=== PATIENT | male | born 1985 | race Caucasian/White ===

== ENCOUNTER 2018-10-02 18:23 | Emergency (ER) | payer SELFPAY ==
[2018-10-02 19:18] LABS: #Basophils 0.1 thou/uL (0.0-0.2); #Eosinphils 0.5 thou/uL (0.0-0.7); #Lymphocytes 2.8 thou/uL (1.20-3.40); #Monocytes 0.9 thou/uL (0.11-0.59); #Neutrophils 5.4 thou/uL (1.40-6.50); %Basophils 0.7 % (0.0-1.0); %Eosinophils 5.4 % (0.0-10.0); %Lymphocytes 28.6 % (21.0-51.0); %Monocytes 9.3 % (0.0-10.0); Hemoglobin 14.1 g/dL (14.0-18.0); Mean Corpuscular HGB CONC 33.9 g/dL (32.0-36.0); Mean Corpuscular Hemoglobin 31.2 pg (27.0-31.0); Mean Corpuscular Volume 91.9 fL (78.0-98.0); Platelet Count 246 thou/uL (130-400); RBC Distribution Width 11.1 % (11.5-14.5); Red Blood Cell (RBC) Count 4.52 mill/uL (4.70-6.10); White Blood Cell (WBC) Count 9.7 thou/uL (4.8-10.8)
[2018-10-02 19:19] LABS: Bilirubin Negative (Negative); Blood, Urine Negative (Negative); Clarity CLEAR (Clear); Glucose, Urine (Dipstick) Negative (Negative); Leukocyte Negative (Negative); Nitrite Negative (Negative); Protein, Urine (Dipstick) Negative (Neg-Trace); Specific Gravity, Urine 1.028 (1.002-1.036); pH, Urine 5.5 (5.0-9.0)
[2018-10-02 19:32] LABS: Amphetamine Detected (NotDetected); Barbiturates Screen Not Detected (NotDetected); Benzodiazepine Screen Not Detected (NotDetected); Cocaine Metabolite Screen Not Detected (NotDetected); Medtox Control Line Valid? VALID (VALID); Medtox Reader # READER 4; Methadone Not Detected (NotDetected); Methamphetamine Not Detected (NotDetected); Opiate Screen Not Detected (NotDetected); Oxycodone Screen Not Detected (NotDetected); Phencyclidine (PCP) Not Detected (NotDetected); THC/Cannabinoid Screen Not Detected (NotDetected); Tricyclic Screen Not Detected (NotDetected)
[2018-10-02 19:40] LABS: Acetaminophen Less than 6.0 mcg/mL (10.0-30.0); Alcohol Less than 10 mg/dL (Less than 10); Salicylate Less than 8.0 mg/dL (15.0-30.0)
[2018-10-02 19:48] LABS: ALT (SGPT) 47 U/L (8-55); AST (SGOT) 31 U/L (5-34); Albumin 4.2 g/dL (3.5-5.0); Alkaline Phosphatase 117 U/L (40-150); Anion Gap 11 mmol/L (10-20); BUN (Urea Nitrogen) 18 mg/dL (8.9-20.6); Bilirubin, Total 0.5 mg/dL (0.2-1.2); CK (CPK) 365 U/L (30-200); Calc. Creatinine Clearance 0 mL/min (70-130); Calcium 9.1 mg/dL (7.8-10.44); Carbon Dioxide 25 mmol/L (22-29); Chloride 109 mmol/L (98-107); Estimated GFR-MDRD 68; Globulin 2.2 g/dL (2.4-3.5); Glucose 83 mg/dL (70-105); Lipase 50 U/L (8-78); Potassium 4.3 mmol/L (3.5-5.1); Protein, Total 6.4 g/dL (6.0-8.3); Sodium 141 mmol/L (136-145)
[2018-10-02] MEDS ORDERED: Lorazepam 1 MG TAB ONE (22:33)
[2018-10-02] MEDS ORDERED: Nicotine 14 MG PATCH TOP SCH (23:00)
[2018-10-02] MEDS ORDERED: Ibuprofen 200 MG TAB ONE (23:44)
[2018-10-02] MEDS ORDERED: hydrOXYzine Pamoate 25 mg Capsule ONE (23:44)
[2018-10-02] MEDS ORDERED: traZODone HCl 50 MG TAB ONE (23:44)
[2018-10-03] MEDS ORDERED: hydrOXYzine 25 MG TAB ONE (12:13)
[2018-10-03] MEDS ORDERED: Ibuprofen 200 MG TAB ONE (15:29)
[2018-10-04] MEDS ORDERED: Nicotine 14 MG PATCH TOP SCH (09:00)
== END 2018-10-04 10:05 | disposition home or self-care (01) ==
LOC: ERS 18:23
DX: F12.159 Cannabis abuse with psychotic disorder, unspecified (principal); F17.210 Nicotine dependence, cigarettes, uncomplicated
CPT/HCPCS: 36415; 80053; 80306; 80307; 81003; 82550; 83690; 84443; 84484; 85025; 93005; 96360; Q0177

== ENCOUNTER 2018-11-13 23:33 | Emergency (ER) | payer SELFPAY ==
[2018-11-14 00:14] LABS: #Basophils 0.1 thou/uL (0.0-0.2); #Eosinphils 0.3 thou/uL (0.0-0.7); #Lymphocytes 2.3 thou/uL (1.20-3.40); #Monocytes 1.2 thou/uL (0.11-0.59); #Neutrophils 9.9 thou/uL (1.40-6.50); %Basophils 0.4 % (0.0-1.0); %Lymphocytes 16.5 % (21.0-51.0); %Monocytes 8.6 % (0.0-10.0); %Neutrophils 72.5 % (42.0-75.0); Mean Corpuscular HGB CONC 33.6 g/dL (32.0-36.0); Mean Corpuscular Hemoglobin 30.2 pg (27.0-31.0); Mean Corpuscular Volume 89.9 fL (78.0-98.0); Platelet Count 247 thou/uL (130-400); RBC Distribution Width 11.2 % (11.5-14.5); Red Blood Cell (RBC) Count 4.97 mill/uL (4.70-6.10); White Blood Cell (WBC) Count 13.6 thou/uL (4.8-10.8)
[2018-11-14 00:31] LABS: ALT (SGPT) 51 U/L (8-55); AST (SGOT) 26 U/L (5-34); Albumin 4.6 g/dL (3.5-5.0); Alkaline Phosphatase 109 U/L (40-150); Anion Gap 13 mmol/L (10-20); BUN (Urea Nitrogen) 12 mg/dL (8.9-20.6); Bilirubin, Total 0.9 mg/dL (0.2-1.2); CK (CPK) 162 U/L (30-200); Calc. Creatinine Clearance 0 mL/min (70-130); Calcium 9.7 mg/dL (7.8-10.44); Carbon Dioxide 23 mmol/L (22-29); Chloride 103 mmol/L (98-107); Estimated GFR-MDRD 78; Globulin 2.5 g/dL (2.4-3.5); Glucose 150 mg/dL (70-105); Protein, Total 7.1 g/dL (6.0-8.3); Sodium 135 mmol/L (136-145)
[2018-11-14 00:38] LABS: Amphetamine Not Detected (NotDetected); Barbiturates Screen Not Detected (NotDetected); Benzodiazepine Screen Not Detected (NotDetected); Cocaine Metabolite Screen Not Detected (NotDetected); Medtox Control Line Valid? VALID (VALID); Medtox Reader # READER 4; Methadone Not Detected (NotDetected); Methamphetamine Not Detected (NotDetected); Opiate Screen Not Detected (NotDetected); Oxycodone Screen Not Detected (NotDetected); Phencyclidine (PCP) Not Detected (NotDetected); THC/Cannabinoid Screen Not Detected (NotDetected); Tricyclic Screen Not Detected (NotDetected)
[2018-11-14] MEDS ORDERED: Acetaminophen 500 MG TAB ONE (00:39)
[2018-11-14] MEDS ORDERED: Ondansetron PF 4 MG/2 ML Vial ONE (00:39)
[2018-11-14] MEDS ORDERED: Pantoprazole 40 MG VIAL ONE (00:39)
[2018-11-14 00:48] LABS: Acetaminophen Less than 6.0 mcg/mL (10.0-30.0); Alcohol Less than 10 mg/dL (Less than 10); Salicylate Less than 8.0 mg/dL (15.0-30.0)
[2018-11-14 00:59] LABS: CKMB 1.2 ng/mL (0-6.6)
[2018-11-14 04:01] LABS: Troponin I 0.025 ng/mL (< 0.028)
--- NOTE | 2018-11-14 07:37 | CT ---
PRELIMINARY REPORT/[facility]/EMERGENCY AFTER HOURS PROCEDURE: EXAM: CT Head Without Contrast EXAM DATE/TIME: 11/14/2018 12:46 AM CLINICAL HISTORY: 33 years old, male; Injury or trauma; Initial encounter; Blunt trauma (contusions or hematomas); Without loss of consciousness; Patient HX: 33 y/o m presents to ED with multiple complaints. PT reports smoking what he thought was marijuana on Sunday, then learned it was k2. After the drug use, PT is described to have fallen in the shower with injury to sacrum and head. PT C/O FRANKS, profuse diarrhea, nausea, myalgias, neck pain, weakness throughout the day yesterday. PT voices concern that he has been poisoned TECHNIQUE: Imaging protocol: Axial computed tomography images of the head without contrast. COMPARISON: No relevant prior studies available. FINDINGS: Brain: No acute intracranial hemorrhage or mass effect. No definite acute infarct by CT. Ventricles: Ventricle size is normal for age. Bones/joints: No definite acute skull fracture. Sinuses: Moderate fluid/opacity in the included upper left ethmoid/maxillary sinuses. Included paranasal sinuses otherwise appear essentially clear. Mastoid air cells: No significant acute finding. IMPRESSION: 1. No acute intracranial hemorrhage or mass effect. 2. Other findings discussed above. 3. Please see subsequent CT Facial Bone report for complete evaluation of the facial bones. Thank you for allowing us to participate in the care of your patient. Dictated and Authenticated by: Allen Vides MD 11/14/2018 1:46 AM Central Time ([place] & [place]) FINAL REPORT CT HEAD NONCONTRAST PERFORMED ON AN EMERGENCY BASIS: Date: 11/14/18 Time: 0047 hours HISTORY: Altered mental status. Fall. Head injury. FINDINGS: I agree with the preliminary report by Dr. Vides from [facility]. No acute intracran ial abnormalities are demonstrated. Opacification of the partially visualized left maxillary sinus. The face is pending. Code QA. Transcribed Date/Time: 11/14/2018 7:53 AM
--- NOTE | 2018-11-14 07:40 | CT ---
PRELIMINARY REPORT/[facility]/EMERGENCY AFTER HOURS PROCEDURE: EXAM: CT Maxillofacial Without Contrast EXAM DATE/TIME: 11/14/2018 12:46 AM CLINICAL HISTORY: 33 years old, male; Injury or trauma; Initial encounter; Blunt trauma (contusions or hematomas); Head/scalp; Without loss of consciousness; Patient HX: 33 y/o m presents to ED with multiple complaints. PT reports smoking what he thought was marijuana on Sunday, then learned it was k2. After the drug use, PT is described to have fallen in the shower with injury to sacrum and head. PT C/O FRANKS, profuse diarrhea, nausea, myalgias, neck pain, weakness throughout the day yesterday. PT voices concern that he has been poisoned TECHNIQUE: Imaging protocol: Axial computed tomography images of the face without intravenous contrast. Coronal and sagittal reformatted images were created and reviewed. COMPARISON: No relevant prior studies available. FINDINGS: Orbits: Orbital contents appear intact/unremarkable. Sinuses: Moderate fluid/opacity in the left ethmoid and left maxillary sinuses. Included paranasal sinuses otherwise appear essentially clear. Bones/joints: No definite evidence of acute facial bone fracture. IMPRESSION: 1. No definite acute facial bone/orbital fracture by CT. 2. Other findings discussed above. Thank you for allowing us to participate in the care of your patient. Dictated and Authenticated by: Allen Vides MD 11/14/2018 2:00 AM Central Time ([place] & [place]) FINAL REPORT CT FACE NONCONTRAST PERFORMED ON AN EMERGENCY BASIS: Date: 11/14/18 Time: 0048 hours HISTORY: Fall. Facial injury. FINDINGS: Agree with the preliminary report by Dr. Vides of [facility]. Moderate fluid and muc osal thickening left maxillary sinus extending into the ethmoid infundibulum. Clinical correlation regarding blood in nasal passage is required. Orbital kovacs are intact. The globes, zygomatic arches, and mandible are unremarkable. Code QA. Transcribed Date/Time: 11/14/2018 8:00 AM
--- NOTE | 2018-11-14 07:42 | CT ---
PRELIMINARY REPORT/[facility]/EMERGENCY AFTER HOURS PROCEDURE: EXAM: CT Cervical Spine Without Contrast EXAM DATE/TIME: 11/14/2018 12:46 AM CLINICAL HISTORY: 33 years old, male; Injury or trauma; Initial encounter; Blunt trauma; Patient HX: 33 y/o m presents to ED with multiple complaints. PT reports smoking what he thought was marijuana on Sunday, then learned it was k2. After the drug use, PT is described to have fallen in the shower with injury to sacrum and head. PT C/O FRANKS, profuse diarrhea, nausea, myalgias, neck pain, weakness throughout the day yesterday. PT voices concern that he has been poisoned TECHNIQUE: Imaging protocol: Axial computed tomography images of the cervical spine without contrast. Coronal and sagittal reformatted images were created and reviewed. COMPARISON: No relevant prior studies available. FINDINGS: Vertebrae: On axial CT images, no definite acute fracture is visible. Sagittal and coronal reconstructions show no fracture or subluxation. Discs/Spinal canal/Neural foramina: No definite/significant disc herniation by CT, MRI could be more sensitive if clinically indicated. Lungs: Lung apices appear essentially unremarkable. IMPRESSION: 1. No definite acute fracture or subluxation by CT. 2. Other findings discussed above. Thank you for allowing us to participate in the care of your patient. Dictated and Authenticated by: Allen Vides MD 11/14/2018 2:05 AM Central Time ([place]) FINAL REPORT CT CERVICAL SPINE NONCONTRAST PERFORMED ON AN EMERGENCY BASIS: Date: 11/14/18 Time: 0048 hours HISTORY: Fall. Neck injury. FINDINGS: Agree with the preliminary report by Dr. Vides from [facility]. No acute osseous abn ormalities of the cervical spine are demonstrated. Code QA. Transcribed Date/Time: 11/14/2018 8:03 AM
--- NOTE | 2018-11-14 07:46 | CT ---
PRELIMINARY REPORT/[facility]/EMERGENCY AFTER HOURS PROCEDURE: EXAM: CT Chest With Contrast EXAM DATE/TIME: 11/14/2018 12:50 AM CLINICAL HISTORY: 33 years old, male; Injury or trauma; Initial encounter; Generalized; Blunt trauma (contusions or hematomas); Patient HX: 33 y/o m presents to ED with multiple complaints. PT reports smoking what he thought was marijuana on Sunday, then learned it was k2. After the drug use, PT is described to have fallen in the shower with injury to sacrum and head. PT C/O FRANKS, profuse diarrhea, nausea, myalgias, neck pain, weakness throughout the day yesterday. PT voices concern that he has been poisoned TECHNIQUE: Imaging protocol: Axial computed tomography images of the chest with intravenous contrast. Coronal and sagittal reformatted images were created and reviewed. COMPARISON: No relevant prior studies available. FINDINGS: Lungs: No consolidation. No masses. Pleural space: No pneumothorax. No pleural effusion. Heart: No cardiomegaly. No pericardial effusion. Aorta: No acute findings. No aortic aneurysm. Lymph nodes: No significant adenopathy. Bones/joints: No acute fracture. Soft tissues: No acute findings. IMPRESSION: No acute findings. EXAM: CT Abdomen and Pelvis With Contrast EXAM DATE/TIME: 11/14/2018 12:50 AM CLINICAL HISTORY: 33 years old, male; Injury or trauma; Initial encounter; Generalized; Blunt trauma (contusions or hematomas); Patient HX: 33 y/o m presents to ED with multiple complaints. PT reports smoking what he thought was marijuana on Sunday, then learned it was k2. After the drug use, PT is described to have fallen in the shower with injury to sacrum and head. PT C/O FRANKS, profuse diarrhea, nausea, myalgias, neck pain, weakness throughout the day yesterday. PT voices concern that he has been poisoned TECHNIQUE: Imaging protocol: Axial computed tomography images of the abdomen and pelvis with intravenous contrast. Coronal and sagittal reformatted images were created and reviewed. COMPARISON: No relevant prior studies available. FINDINGS: Liver: No acute findings. No mass. Gallbladder and bile ducts: No calcified stones. No ductal dilation. Pancreas: No acute findings. No mass. No ductal dilation. Spleen: No acute findings. Mild splenomegaly. Adrenals: No acute findings. No mass. Kidneys and ureters: Horseshoe kidney. No acute findings. No mass. No hydronephrosis. Stomach and bowel: Fecal loading. Diverticulosis. No evidence of bowel obstruction. Appendix: No evidence of appendicitis. Intraperitoneal space: No free air. No significant fluid collection. Vasculature: No acute findings. No abdominal aortic aneurysm. Lymph nodes: No significant lymphadenopathy. Bladder: No acute findings. Reproductive: No acute findings. Bones/joints: No acute fracture. Soft tissues: No acute findings. IMPRESSION: No acute findings. Thank you for allowing us to participate in the care of your patient. Dictated and Authenticated by: Kalen Gustafson MD 11/14/2018 3:50 AM Central Time ([place]) FINAL REPORT EMERGENCY AFTER HOURS STUDY CT CHEST WITH IV CONTRAST CT ABDOMEN AND PELVIS WITH IV CONTRAST CT THORACIC SPINE NONCONTRAST CT LUMBAR SPINE NONCONTRAST DATE: 11/14/18 TIME: 0052 HOURS HISTORY: Fall. Chest injury. Abdomen injury. Back injury. FINDINGS: I agree with the preliminary report by Dr. Gustafson from [facility]. No acute traumatic injury is demonstrated. Horseshoe kidney is noted. Code QA. Transcribed Date/Time: 11/14/2018 8:07 AM
--- NOTE | 2018-11-14 07:57 | RAD ---
Exam: Chest one view HISTORY:Emergency exam, smoking K2 Comparison: 01/13/2015 FINDINGS: Lungs: No masses or consolidation. Cardiac silhouette: Normal size Pulmonary vessels: Normal Pleural Spaces: Clear Pneumothorax: None Osseous abnormalities: None of acuity. IMPRESSION: No focal consolidation.
--- NOTE | 2018-11-16 12:16 | EKG ---
Test Reason : Blood Pressure : / mmHG Vent. Rate : 067 BPM Atrial Rate : 067 BPM P-R Int : 138 ms QRS Dur : 090 ms QT Int : 402 ms P-R-T Axes : 067 046 046 degrees QTc Int : 424 ms Normal sinus rhythm Normal ECG Confirmed by GAURANG TAFOYA ([id number]), managing editor IGOR EVANGELISTA ([id number] on 11/16/2018 12:15:33 PM Referred By: Confirmed By:GAURANG TAFOYA
== END 2018-11-14 04:27 | disposition home or self-care (01) ==
LOC: ERS 23:33
DX: T40.7X1A Poisoning by cannabis (derivatives), accidental (unintentional), initial encounter (principal); R11.2 Nausea with vomiting, unspecified; R19.7 Diarrhea, unspecified; F41.9 Anxiety disorder, unspecified; F17.210 Nicotine dependence, cigarettes, uncomplicated
CPT/HCPCS: 36415; 70450; 70486; 71045; 71260; 72125; 74177; 80053; 80306; 80307; 82550; 82553; 83690; 84484; 85025; 93005; 94760; 96361; 96374; 96375; C9113; J2405

== ENCOUNTER 2022-11-15 02:21 | Emergency (ER) | payer OTHER | END 2022-11-15 17:17 | LOC: ERS 02:21 | DX: R44.1 Visual hallucinations (principal); R44.0 Auditory hallucinations; F19.959 Other psychoactive substance use, unspecified with psychoactive substance-induced psychotic disorder, unspecified; F17.210 Nicotine dependence, cigarettes, uncomplicated | CPT/HCPCS: 99285 ==